=== PATIENT | female | born 1995 | race Caucasian/White ===

== ENCOUNTER 2017-06-14 17:49 | Emergency (ER) | payer OTHER ==
[~2017-06-14] VITALS: Ht 162.6 cm; Wt 50.0 kg
[2017-06-14 17:54] VITALS: BP 109/68; TEMP 98.2
[2017-06-14] MEDS ORDERED: ATARAX 25MG25 MG/TAB PO (18:55)
[2017-06-14] MEDS ORDERED: PREDNISONE20 MG PO (18:55)
[2017-06-14 19:24] VITALS: PULSE 187
== END 2017-06-14 19:24 | disposition home or self-care (01) ==
LOC: COL.ER 17:49
DX: T63.481A Toxic effect of venom of other arthropod, accidental (unintentional), initial encounter (principal); X32.XXXA Exposure to sunlight, initial encounter
CPT/HCPCS: J7512